=== PATIENT | female | born 1955 | race Caucasian/White ===

== ENCOUNTER 2022-01-21 08:02 | Outpatient (CLI) | payer MEDICARE, BC | END 2022-01-21 08:03 | disposition home or self-care (01) | LOC: CSHMAMMO 08:02 | PROVIDERS: ATTEND Nurse Practitioner Family | DX: Z12.31 Encounter for screening mammogram for malignant neoplasm of breast (principal); Z80.3 Family history of malignant neoplasm of breast | CPT/HCPCS: 77063; 77067 ==

== ENCOUNTER 2023-01-23 08:55 | Outpatient (CLI) | payer MEDICARE, BC | END 2023-01-23 08:56 | disposition home or self-care (01) | LOC: CSHMAMMO 08:55 | PROVIDERS: ATTEND Obstetrics & Gynecology | DX: Z12.31 Encounter for screening mammogram for malignant neoplasm of breast (principal); Z80.3 Family history of malignant neoplasm of breast | CPT/HCPCS: 77063; 77067 ==

== ENCOUNTER 2023-02-04 10:38 | Outpatient (CLI) | payer MEDICARE, BC | END 2023-02-04 10:39 | disposition home or self-care (01) | LOC: CSHMAMMO 10:38 | PROVIDERS: ATTEND Obstetrics & Gynecology | DX: Z13.820 Encounter for screening for osteoporosis (principal); M85.89 Other specified disorders of bone density and structure, multiple sites | CPT/HCPCS: 77080 ==

== ENCOUNTER 2024-08-15 08:51 | Outpatient (CLI) | payer MEDICARE ==
[2024-08-15] MEDS ORDERED: Iopamidol 300 61% 100 ML VIAL FS ONE (14:49)
== END 2024-08-15 08:52 | disposition home or self-care (01) ==
LOC: CSHCT 08:51
PROVIDERS: ATTEND Internal Medicine Gastroenterology
DX: R10.32 Left lower quadrant pain (principal); R10.30 Lower abdominal pain, unspecified; Z86.0100 Personal history of colon polyps, unspecified; K76.89 Other specified diseases of liver; K57.90 Diverticulosis of intestine, part unspecified, without perforation or abscess without bleeding
CPT/HCPCS: 74177